=== PATIENT | male | born 2000 | race Two or more races ===

== ENCOUNTER 2025-05-03 12:02 | Emergency (ER) | payer MEDICAID, SELFPAY ==
--- NOTE | 2025-05-03 12:16 | PD.EDALLER ---
ED Allergic Reaction RME/HPI General Chief complaint: Allergic Reaction Stated complaint: Rash, allergic reaction since 0600 Time Seen by Provider: 05/03/25 12:08 Arrival date/time: 05/03/25 12:02 RME / HPI RME / HPI narrative: 25-year-old male patient was brought in for evaluation regarding erythematous rashes. Onset of symptoms since early this morning, patient woke up with erythematous rashes and hives, scattered all over, with itchiness. Patient denies any shortness of breath denies any difficulty swallowing. Patient cannot identify the source of his allergy. Denies any similar episode in the past. No medications taken prior to arrival. Related Data Previous Rx's ?Medication ?Instructions ?Recorded diphenhydramine HCl 25 mg capsule 25 mg PO TID PRN allergic reaction 05/03/25 (Benadryl) #30 caps prednisone 50 mg tablet 50 mg PO QDAY #5 tabs 05/03/25 Allergies Allergy/AdvReac Type Severity Reaction Status Date / Time Latex, Natural Rubber Allergy Severe Rash Verified 05/03/25 12:06 Review of Systems Review of Systems Narrative Review of Systems: Review of system reviewed and within normal limits except mentioned in HPI ED Exam Narrative Physical exam: VITAL SIGNS: Reviewed. GENERAL APPEARANCE: Alert and interactive, follows commands, no acute distress, HEAD AND FACE: Non-traumatic. ENT: PERRL, pink conjunctivitis, eyelid no trauma, Mucous membrane moist. NECK: Supple, nontender, no nuchal rigidity. CHEST: No tenderness, no crepitus, no paradoxical movement, no retractions. LUNGS: Clear, well ventilated, symmetric, no rales, no wheezing, no ronchi, no stridor, good breath sounds bilaterally. HEART: Regular rate, regular rhythm, no murmur, no gallops. ABDOMEN: Soft, positive bowel sounds, nondistended, no guarding, nontender, no rebound, no masses, RECTAL: Deferred. GENITAL: Deferred. NEUROLOGICAL: Gross motor function intact sensory function intact, Appropriate for age. MUSCULOSKELETAL: low back nontender, full range of motion. EXTREMITIES: Nontender, full range of motion. SKIN: Color pink, dry, erythematous rashes with hives scattered all over, no lacerations, no abrasions, no contusions. LYMPHATICS: Deferred. Course Quality Measures none Orders Category Date Time Status Dexamethasone Inj [Decadron Inj] Med 05/03/25 12:15 Discontinued 10 mg PO X1 ONE DiphenhydrAMINE [Benadryl] Med 05/03/25 12:15 Discontinued 50 mg PO X1 ONE Famotidine [Pepcid] Med 05/03/25 12:15 Discontinued 40 mg PO X1 ONE Vital Signs Vital signs: Vital Signs Temperature 97.6 F 05/03/25 12: Pulse Rate 66 05/03/25 12:26 Respiratory Rate 18 05/03/25 12:26 Blood Pressure 148/92 H 05/03/25 12:26 Pulse Oximetry (%) 96 05/03/25 12:26 Oxygen Delivery Method Room Air 05/03/25 12:26 Allergic Reaction MDM Narrative MDM Narrative:: 25-year-old male patient was brought in for evaluation regarding erythematous rashes. Onset of symptoms since early this morning, patient woke up with erythematous rashes and hives, scattered all over, with itchiness. Patient denies any shortness of breath denies any difficulty swallowing. Patient cannot identify the source of his allergy. Denies any similar episode in the past. No medications taken prior to arrival. Patient received Decadron, Benadryl and Pepcid with significant improvement of symptoms Was advised to follow-up with PCP and for referral to [facility] to identify the source of the allergen Patient data External records reviewed:: None Clinical information provided by:: patient Social determinants that could affect healthcare access:: none Patient has the following chronic illnesses:: none How is presenting disease/condition affected by chronic disease/condition?: exacerbated by Evaluation data The following diagnostics were reviewed and interpreted by me:: other (specify) (none) Lab and/or radiology exams considered but not ordered:: none Interpretation Summary: none Medications / Prescriptions Medications or Prescriptions considered but not ordered:: None Medication administrations:: Medication Administration History Discontinued Medications Dexamethasone Sodium Phosphate (Dexamethasone Sod Phos Inj 10 Mg/Ml Vial) 10 mg PO X1 ONE Stop: 05/03/25 12:16 Last Admin: 05/03/25 12:27 Dose: 10 mg Documented By: OA Diphenhydramine HCl (Diphenhydramine 25 Mg Capsule) 50 mg PO X1 ONE Stop: 05/03/25 12:16 Last Admin: 05/03/25 12:27 Dose: 50 mg Documented By: GLENDY Famotidine (Famotidine 20 Mg Tablet) 40 mg PO X1 ONE Stop: 05/03/25 12:16 Last Admin: 05/03/25 12:26 Dose: 40 mg Documented By: GLENDY DecadronKalinadryl and Pepcid Consultations Consultation(s) initiated? (list below): No Diagnosis Differential Diagnosis allergic reaction: allergic reaction, viral enanthem, urticaria and other (Allergic reaction) Most likely diagnosis given after review of the tests above:: Allergic rash Admission Indicated Admission indicated?: not indicated Admission Request Was there a request for admission?: No Disposition Plan Disposition Plan: Discharge Discharge Attestation Discharge Attestation: The patient was given an opportunity to ask questions and understood the discharge instructions. Discharge instructions specifically effects, indications for sooner follow up or return to the emergency department, and the expected course of current diagnosis. Patient condition: Stable Discharge Plan Plan Patient Disposition: HOME (Self Care) Discharge Disposition comment: Stable Prescriptions/Referrals Prescriptions/Med Rec: New diphenhydramine HCl [Benadryl] 25 mg capsule 25 mg PO TID PRN (Reason: allergic reaction) Qty: 30 0RF prednisone 50 mg tablet 50 mg PO QDAY Qty: 5 0RF Problem List Clinical Impression: Allergic reaction Patient/Caregiver Discharge Instructions Discharge Activity: activity as tolerated Education Materials: Allergy Overview Additional Instructions: Thank you for the opportunity for serving you today. You are stable for discharged . You are advised to: Follow-up with your PCP in 1 to 2 days Return to ED for worsening of symptoms Increase oral fluids Take medication as prescribed Print Language: Bengali Stand Alone Forms: [employer] Award Info., Patient Portal Info Letter
[2025-05-03 12:26] VITALS: BP 148/92; PULSE 66; RESP 18; TEMP 36.4; O2SAT 96
[2025-05-03] MEDS: FAMOTIDINE 20 MG TABLET 40 MG PO (12:26)
[2025-05-03] MEDS: DEXAMETHASONE SOD PHOS INJ 10 MG/ML VIAL PO (12:27)
[2025-05-03] MEDS: DiphenhydrAMINE 25 MG CAPSULE 50 MG PO (12:27)
== END 2025-05-03 13:32 | disposition home or self-care (01) ==
LOC: SERX 12:52
PROVIDERS: Emergency Provider Emergency Medicine; PCP Family Medicine
DX: L50.0 Allergic urticaria (principal)
CPT/HCPCS: 99282; J1100; A9270

== ENCOUNTER 2025-06-09 10:57 | Emergency (ER) | payer MEDICAID, SELFPAY ==
[2025-06-09 10:57] VITALS: BMI 36.0
[2025-06-09 11:33] VITALS: BP 143/79; PULSE 57; RESP 16; TEMP 36.7; O2SAT 97
--- NOTE | 2025-06-09 11:40 | PD.EDEYE ---
ED Eye Problem RME/HPI General Chief complaint: Eye Problems Stated complaint: R) EYE REDNESS/ITCHY/DRY Time Seen by Provider: 06/09/25 11:17 Source: patient Arrival date/time: 06/09/25 10:57 25-year-old male with no known medical history presents to the emergency room with a chief complaint of redness itchiness and dryness to his right eye x 2 days Mode of arrival: ambulatory Limitations: no limitations Related Data Previous Rx's ?Medication ?Instructions ?Recorded diphenhydramine HCl 25 mg capsule 25 mg PO TID PRN allergic reaction 05/03/25 (Benadryl) #30 caps prednisone 50 mg tablet 50 mg PO QDAY #5 tabs 05/03/25 tobramycin 0.3 % eye drops 2 drp ophthalmic (eye) Q2H #5 mL 06/09/25 Allergies Allergy/AdvReac Type Severity Reaction Status Date / Time Latex, Natural Rubber Allergy Severe Rash Verified 06/09/25 10:59 Review of Systems Review of Systems Systems Reviewed: All systems reviewed, normal except as documented Constitutional Constitutional: Reports system reviewed and no additional complaints, except as documented, Denies fatigue, Denies fever(s), Denies headache(s) and Denies weakness Eyes Eyes: Reports system reviewed and no additional complaints, except as documented, Denies blurry vision, Denies change in vision, Denies decreased night vision, Denies diplopia, Denies eye discharge, Reports dry eyes, Denies exophthalmos, Denies floaters, Reports irritation, Reports itchy eyes, Denies loss of peripheral vision, Denies loss of vision, Denies other visual disturbances, Denies eye pain, Denies photophobia, Denies requires corrective lenses, Denies seeing flashes, Denies spots in vision and Denies tunnel vision ENT Ears, Nose, Mouth, and Throat: Reports system reviewed and no additional complaints, except as documented, Denies otalgia, Denies headache(s), Denies nasal congestion, Denies throat swelling and Denies vertigo Cardiovascular Cardiovascular: Reports system reviewed and no additional complaints, except as documented, Denies chest pain, Denies dyspnea and Denies dyspnea on exertion Respiratory Respiratory: Reports system reviewed and no additional complaints, except as documented, Denies chest congestion, Denies cough, Denies dyspnea, Denies dyspnea on exertion and Denies wheezing Gastrointestinal Gastrointestinal: Reports system reviewed and no additional complaints, except as documented, Denies abdominal pain, Denies cramping, Denies nausea and Denies vomiting Genitourinary Genitourinary: Reports system reviewed and no additional complaints, except as documented, Denies dysuria and Denies hematuria Musculoskeletal Musculoskeletal: Reports system reviewed and no additional complaints, except as documented and Denies back pain Integumentary/Breasts Skin/Breast: Reports system reviewed and no additional complaints, except as documented and Denies wounds Neurologic Neurologic: Reports system reviewed and no additional complaints, except as documented, Denies confusion, Denies headache(s), Denies lack of coordination, Denies loss of vision, Denies vertigo and Denies weakness Psychiatric Psychiatric: Reports system reviewed and no additional complaints, except as documented, Denies anxiety, Denies confusion, Denies depression, Denies paranoia, Denies suicidal ideation and Denies tactile hallucinations Endocrine Endocrine: Reports system reviewed and no additional complaints, except as documented and Denies fatigue Hematologic/Lymphatic Hematologic/Lymphatic: Reports system reviewed and no additional complaints, except as documented and Denies lymphadenopathy Allergic/Immunologic Allergic/Immunologic: Reports system reviewed and no additional complaints, except as documented, Reports itchy eyes, Denies throat swelling, Denies urticaria and Denies wheezing ED Exam General Limitations: Present no limitations Course Quality Measures none Vital Signs Vital signs: Vital Signs Temperature 98.0 F 06/09/25 11:33 Pulse Rate 57 L 06/09/25 11:33 Respiratory Rate 16 06/09/25 11:33 Blood Pressure 143/79 H 06/09/25 11:33 Pulse Oximetry (%) 97 06/09/25 11:33 Oxygen Delivery Method Room Air 06/09/25 11:33 O2 saturation 97% within normal limits Eye MDM Narrative MDM Narrative:: 25-year-old male with no known medical history presents to the emergency room with a chief complaint of redness itchiness and dryness to his right eye x 2 days Patient is hemodynamically stable and in no apparent distress Physical examination shows an erythemic right sided conjunctival. There is no discharge. The patient denies any blurry vision spots in vision or any visual disturbances. Patient was discharged and educated to follow-up with primary care provider in the next 24 to 48 hours and return to the emergency room for any evidence of worsening signs or symptoms Patient data External records reviewed:: [facility] previous records Clinical information provided by:: patient Social determinants that could affect healthcare access:: none Patient has the following chronic illnesses:: No chronic illness How is presenting disease/condition affected by chronic disease/condition?: no chronic disease Evaluation data The following diagnostics were reviewed and interpreted by me:: lab results and radiology exam(s) Lab and/or radiology exams considered but not ordered:: Labs and radiology exams considered and ordered Interpretation Summary: N/A Medications / Prescriptions Medications or Prescriptions considered but not ordered:: Rx given Medication administrations:: Rx given Consultations Consultation(s) initiated? (list below): No Diagnosis Eye Problem Differential Diagnosis: corneal abrasion, conjunctivitis, subconjunctival hemorrhage and corneal ulcer Most likely diagnosis given after review of the tests above:: Conjunctivitis Admission Indicated Admission indicated?: not indicated Admission Request Was there a request for admission?: No Disposition Plan Disposition Plan: Discharge Discharge Attestation Discharge Attestation: The patient and all family members were given an opportunity to ask questions and understood the discharge instructions. Discharge instructions specifically effects, indications for sooner follow up or return to the emergency department, and the expected course of current diagnosis. Patient condition: Stable Discharge Plan Plan Patient Disposition: HOME (Self Care) Discharge Disposition comment: Stable Prescriptions/Referrals Prescriptions/Med Rec: New tobramycin 0.3 % drops 2 drp ophthalmic (eye) Q2H Qty: 5 0RF No Action diphenhydramine HCl [Benadryl] 25 mg capsule 25 mg PO TID PRN (Reason: allergic reaction) Qty: 30 0RF prednisone 50 mg tablet 50 mg PO QDAY Qty: 5 0RF Problem List Clinical Impression: Bacterial conjunctivitis Patient/Caregiver Discharge Instructions Education Materials: ED Conjunctivitis, Bacterial Additional Instructions: Please follow-up with your primary care provider in the next 24 to 48 hours Antibiotics are sent to your pharmacy please pick them up and take them as indicated For any evidence of worsening signs or symptoms return to the emergency room immediately Print Language: Spanish Stand Alone Forms: [employer] Award Info., Patient Portal Info Letter PA/MICRO PHOTOGRAPHER Supervising Physician PA/MICRO PHOTOGRAPHER Supervising Physician: Dr. Dailey
== END 2025-06-09 12:19 | disposition home or self-care (01) ==
PROVIDERS: Emergency Provider Nurse Practitioner Family
DX: H10.89 Other conjunctivitis (principal)
CPT/HCPCS: 99282